=== PATIENT | female | born 1990 | race Asian ===

== ENCOUNTER 2017-11-29 22:57 | Emergency (ER) | payer MEDICAID ==
[~2017-11-29] VITALS: Ht 170.2 cm; Wt 57.2 kg
[2017-11-29 22:59] VITALS: Ht 170.2 cm; Wt 57.2 kg
[2017-11-30 01:05] VITALS: BP 130/87
== END 2017-11-30 00:45 | disposition home or self-care (01) ==
LOC: ED 22:57
DX: L03.116 Cellulitis of left lower limb (principal); L03.115 Cellulitis of right lower limb